=== PATIENT | male | born 1945 | race Caucasian/White ===

== ENCOUNTER 2016-12-26 12:07 | Emergency (ER) | payer OTHER ==
[~2016-12-26] VITALS: Ht 172.7 cm; Wt 144.5 kg
[~2016-12-26 12:07] MED LIST: ADULT LOW DOSE81 M1 PO; ADVAIR HFA120 INHALA IH; ALBUTEROL SULF8.5 GM IH; ALLOPURINOL100 MG PO; AMIODARONE HCL200 MG PO; ATORVASTATIN CA40 MG PO; AZITHROMYCIN500 M1 PO; BENICAR20 MG PO; BUMEX2 MG; BUMEX2 MG PO; CARDURA4 MG PO; CARVEDILOL12.5 MG PO; CEFTIN500 MG PO; COUMADIN,JANTOVE1 MG PO; COUMADIN5 MG PO; COUMADIN7.5 MG PO; COZAAR100 MG PO; Cordarone, Pacerone PO; EXCEDRIN MIGRA1 EAC3 PO; FLOMAX0.4 MG PO; FUROSEMIDE40 MG PO; JANTOVEN6 MG PO; K-DUR20 MEQ PO; LASIX40 MG PO; LIPITOR20 MG PO; LIPITOR40 MG PO; LORAZEPAM0.5 MG PO; LOSARTAN POTASS25 MG PO; NORVASC10 MG PO; NORVASC5 MG PO; NOVOLIN,HU100 UNITS/ SC; NOVOLOG MI100 UNIT/4 SC; NOVOLOG MI100 UNIT/M PO; NOVOLOG MI100 UNIT/M SC; OMEPRAZOLE20 M3; OMEPRAZOLE20 MG PO; PREDNISONE10 MG PO; PRILOSEC20 MG PO; PROSCAR5 MG PO; Percocet 5/325,Endoc PO; SPIRIVA1 INHALATI IH; SPIRONOLACTONE25 MG PO; TAMSULOSIN HCL0.4 MG PO; TENORMIN100 M1 PO; TENORMIN100 MG PO; TYLENOL EXTRA500 MG PO; ULORIC40 MG; ULORIC40 MG PO; VYTORIN 10-201 EACH PO; VYTORIN 10/21 TABLET PO; WARFARIN SODIUM5 MG PO; WARFARIN SODIUM6 MG PO; ZYLOPRIM100 MG PO
[2016-12-26] MEDS ORDERED: ULTRAM50 MG PO (15:26)
[2016-12-26 15:39] VITALS: BP 148/62
== END 2016-12-26 15:40 | disposition home or self-care (01) ==
LOC: EME 12:07
PROC: 3E0234Z Introduction of Serum, Toxoid and Vaccine into Muscle, Percutaneous Approach (ICD-10-PCS; principal; 2016-12-26)
DX: S40.022A Contusion of left upper arm, initial encounter (principal); S51.812A Laceration without foreign body of left forearm, initial encounter; S80.02XA Contusion of left knee, initial encounter; W01.0XXA Fall on same level from slipping, tripping and stumbling without subsequent striking against object, initial encounter; Y93.K1 Activity, walking an animal; Z23 Encounter for immunization; I11.0 Hypertensive heart disease with heart failure; I50.9 Heart failure, unspecified; E11.9 Type 2 diabetes mellitus without complications; Z79.4 Long term (current) use of insulin; K21.9 Gastro-esophageal reflux disease without esophagitis; E78.5 Hyperlipidemia, unspecified; I25.2 Old myocardial infarction; Z95.5 Presence of coronary angioplasty implant and graft; Z95.1 Presence of aortocoronary bypass graft; Z87.442 Personal history of urinary calculi; Z88.0 Allergy status to penicillin
CPT/HCPCS: 73090; 73130; 73564; 99281; 99284